=== PATIENT | male | born 1965 | race Caucasian/White ===

== ENCOUNTER → 2017-09-12 09:34 | Outpatient (CLI) | payer OTHER, SELFPAY ==
--- NOTE | 2017-09-12 | DI.RAD.S_ITS ---
PROCEDURE: XR CERVICAL SPINE 4V OR 5V INDICATIONS: NECK PAIN TECHNIQUE: 5 views of the cervical spine were acquired. COMPARISON: None. FINDINGS: Bones: No fractures or dislocations to the C7 level. Mild narrowing of the C3-C4 disc space. Mild diffuse facet disease. No suspicious bony lesions. There is normal range of motion between flexion and extension, with preserved normal bony alignment. Soft tissues: Prevertebral soft tissues are normal in thickness. Small right carotid calcification IMPRESSION: Mild C3-C4 disc degeneration and diffuse facet arthropathy. No evidence of abnormal motion with flexion and extension lateral views. Dictated by: Braxton Leal M.D. on 09/12/2017 at 12:16 Approved by: Braxton Leal M.D. on 09/12/2017 at 12:18
== END ==
PROVIDERS: Family Provider Family Medicine; PCP Family Medicine; Visit Provider Family Medicine
DX: M50.30 Other cervical disc degeneration, unspecified cervical region (principal); M47.812 Spondylosis without myelopathy or radiculopathy, cervical region
CPT/HCPCS: 72050

== ENCOUNTER → 2017-09-14 08:13 | Outpatient (CLI) | payer OTHER, SELFPAY ==
[2017-09-14 09:11] LABS: Add Manual Diff / Slide Review NO; Basophils Percent Auto 0.7 % (0-2); Eosinophils Percent Auto 2.5 % (2-4); Hematocrit 40.9 % (41-53); Hemoglobin 14.1 g/dL (13.5-17.5); Lymphocytes Percent Auto 30.7 % (25-40); Mean Corpuscular HGB Conc 34.4 % (30-36); Mean Corpuscular Hemoglobin 29.5 PG (26-34); Mean Corpuscular Volume 85.7 fL (80-100); Monocytes Percent Auto 7.9 % (3-14); Neutrophils Absolute Auto 2300 /uL (3000-5900); Neutrophils Percent Auto 58.2 % (50-75); Platelet Count 178 X10^3/uL (150-400); Red Blood Cell Count 4.77 X10^6/uL (4.5-5.9); Red Cell Distribution Width 13.6 % (11.6-14.8)
[2017-09-14 09:52] LABS: Alanine Aminotransferase 28 IU/L (21-72); Albumin 4.4 g/dL (3.5-5.0); Albumin Globulin Ratio 1.3 (1.0-2.8); Alkaline Phosphatase 82 U/L (38-126); Aspartate Aminotransferase 28 IU/L (17-59); Bilirubin Total 0.7 mg/dL (0.2-1.3); Calcium 9.2 mg/dL (8.4-10.2); Cholesterol 147 mg/dL (140-199); Estimated Glomerular Filt Rate > 60.0 mL/min (>60); Globulin 3.3 g/dL (1.7-4.1); Glucose 97 mg/dL (70-100); HDL Cholesterol 56 mg/dL (40-60); HEMOLYSIS < 15 (0-50); LDL Cholesterol Calculated 82 mg/dL (<100); Potassium 4.1 mmol/L (3.4-5.1); Sodium 137 mmol/L (137-145); Total Protein 7.7 g/dL (6.3-8.2); Triglycerides 46 mg/dL (35-150)
[2017-09-14 10:21] LABS: Prostate Specific Antigen Scrn 0.669 ng/mL (0.1-4.0); Thyroid Stimulating Hormone 1.31 uIU/mL (0.47-4.68)
== END ==
PROVIDERS: Family Provider Family Medicine; PCP Family Medicine; Visit Provider Family Medicine
DX: E78.5 Hyperlipidemia, unspecified (principal); Z00.00 Encounter for general adult medical examination without abnormal findings; R73.03 Prediabetes; Z83.3 Family history of diabetes mellitus; Z12.5 Encounter for screening for malignant neoplasm of prostate
CPT/HCPCS: 36415; 80053; 80061; 84443; 85025; G0103

== ENCOUNTER → 2018-05-13 12:16 | Outpatient (CLI) | payer OTHER, SELFPAY ==
--- NOTE | 2018-05-13 | DI.RAD.S_ITS ---
PROCEDURE: XR WRIST LT MIN 3V INDICATIONS: LEFT WRIST PAIN TECHNIQUE: 3 views of the wrist were acquired. COMPARISON: None. FINDINGS: Bones: No fractures or dislocations. No suspicious bony lesions. There is moderately severe degenerative joint space narrowing at the radiocarpal joint, where no trauma is found Scaphoid view: Not obtained of the scaphoid visualized appears free of trauma Soft tissues: No suspicious soft tissue calcifications. 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 Dictated by: Thaddeus Bernal M.D. on 05/13/2018 at 13:14 Approved by: Thaddeus Bernal M.D. on 05/13/2018 at 13:15
== END ==
PROVIDERS: PCP Family Medicine; Visit Provider Family Medicine
DX: M25.532 Pain in left wrist (principal); M19.032 Primary osteoarthritis, left wrist
CPT/HCPCS: 73110

== ENCOUNTER → 2018-09-17 06:58 | Outpatient (CLI) | payer OTHER, SELFPAY ==
[2018-09-17 08:28] LABS: Add Manual Diff / Slide Review NO; Basophils Absolute Auto 0 /uL (0-100); Basophils Percent Auto 0.7 % (0-2); Eosinophils Absolute Auto 100 /uL (0-450); Eosinophils Percent Auto 2.5 % (2-4); Hematocrit 44.4 % (41-53); Hemoglobin 14.6 g/dL (13.5-17.5); Lymphocytes Absolute Auto 1100 /uL (1100-4500); Lymphocytes Percent Auto 29.4 % (25-40); Mean Corpuscular HGB Conc 32.9 % (30-36); Mean Corpuscular Volume 88.2 fL (80-100); Monocytes Absolute Auto 300 /uL (0-900); Monocytes Percent Auto 7.5 % (3-14); Neutrophils Absolute Auto 2300 /uL (1500-7000); Neutrophils Percent Auto 59.9 % (50-75); Platelet Count 195 X10^3/uL (150-400); Red Blood Cell Count 5.03 X10^6/uL (4.5-5.9); Red Cell Distribution Width 14.2 % (11.6-14.8); White Blood Cell Count 3.9 X10^3/uL (4.5-11.0)
[2018-09-17 08:46] LABS: Alanine Aminotransferase 26 IU/L (21-72); Albumin 4.8 g/dL (3.5-5.0); Albumin Globulin Ratio 1.5 (1.0-2.8); Alkaline Phosphatase 79 U/L (38-126); Aspartate Aminotransferase 30 IU/L (17-59); BUN Creatinine Ratio 24.3 (6-22); Bilirubin Total 0.6 mg/dL (0.2-1.3); Blood Urea Nitrogen 17 mg/dL (9-20); Calcium 9.7 mg/dL (8.4-10.2); Carbon Dioxide 29 mmol/L (22-32); Chloride 101 mmol/L (98-107); Cholesterol 165 mg/dL (140-199); Estimated Glomerular Filt Rate > 60.0 mL/min (>60); Globulin 3.3 g/dL (1.7-4.1); Glucose 101 mg/dL (70-100); HDL Cholesterol 56 mg/dL (40-60); HEMOLYSIS < 15 (0-50); LDL Cholesterol Calculated 101 mg/dL (<100); Potassium 4.5 mmol/L (3.4-5.1); Sodium 139 mmol/L (137-145); Total Protein 8.1 g/dL (6.3-8.2); Triglycerides 38 mg/dL (35-150); VLDL Cholesterol Calculated 8 mg/dL (2-30)
[2018-09-17 09:16] LABS: Prostate Specific Antigen Scrn 0.781 ng/mL (0.1-4.0)
[2018-09-17 09:17] LABS: Thyroid Stimulating Hormone 2.02 uIU/mL (0.47-4.68)
== END ==
PROVIDERS: PCP Family Medicine; Visit Provider Family Medicine
DX: Z00.00 Encounter for general adult medical examination without abnormal findings (principal); E78.5 Hyperlipidemia, unspecified; Z12.5 Encounter for screening for malignant neoplasm of prostate
CPT/HCPCS: 36415; 80053; 80061; 84443; 85025; G0103

== ENCOUNTER → 2020-07-06 07:43 | Outpatient (CLI) | payer OTHER, SELFPAY ==
[2020-07-06] MEDS: COVID-19 VACC, Ad26(JANSSEN)/PF 0.5 ML IM (07:57)
== END ==
PROVIDERS: PCP Family Medicine; Visit Provider Internal Medicine
DX: Z23 Encounter for immunization (principal)
CPT/HCPCS: 0031A; 91303

== ENCOUNTER → 2021-11-22 11:18 | Outpatient (CLI) | payer OTHER, SELFPAY ==
--- NOTE | 2021-11-22 | DI.RAD.S_ITS ---
PROCEDURE: XR WRIST LT MIN 3V INDICATIONS: Pain in left wrist TECHNIQUE: 3 views of the wrist were acquired. COMPARISON: [facility], CR, XR WRIST LT MIN 3V, 05/13/2018, 12:40. FINDINGS: Bones: Progressive findings. Progression of radiocarpal joint degenerative change, with joint space obliteration. Question sclerosis of the proximal pole of the scaphoid. No acute fracture or dislocation Scaphoid view: Question sclerosis of the proximal pole of the scaphoid. Soft tissues: No suspicious soft tissue calcifications. IMPRESSION: 1. Radiocarpal joint degenerative arthritis is progressive, with joint space obliteration now present. 2. Question sclerosis of the proximal pole of the scaphoid raising question a vascular necrosis. Comment: Left wrist MRI may potentially be helpful further evaluate the scaphoid Dictated by: Nathan Quick M.D. on 11/22/2021 at 12:27 Approved by: Nathan Quick M.D. on 11/22/2021 at 12:30
== END ==
PROVIDERS: PCP Family Medicine; Referring Provider Family Medicine; Visit Provider Family Medicine
DX: M19.032 Primary osteoarthritis, left wrist (principal); M25.532 Pain in left wrist
CPT/HCPCS: 73110

== ENCOUNTER → 2021-11-28 06:34 | Outpatient (CLI) | payer OTHER, SELFPAY ==
--- NOTE | 2021-11-28 | DI.MRI.S_ITS ---
PROCEDURE: MR WRIST LT WO CON INDICATIONS: Pain in left wrist TECHNIQUE: Noncontrast coronal proton density fast spin echo and T2 fast spin echo with fat saturation; coronal 3-D gradient echo, axial T1 spin echo and T2 fast spin echo with fat saturation, sagittal T1 spin echo through the wrist. COMPARISON: [facility], CR, XR WRIST LT MIN 3V, 11/22/2021, 11:22. FINDINGS: Image quality: Excellent. Bones and cartilage: Extensive marrow edema throughout scaphoid is seen with cortical irregularity involving distal portion of scaphoid suggestive of a nondisplaced scaphoid fracture. Subcortical cystic changes also seen within scaphoid. Multiple subcortical cystic areas within lunate, capitate and hamate are seen without significant marrow edema or discrete fracture line. Osteoarthritic changes are seen throughout wrist joints with joint space narrowing and subchondral sclerosis. No other fracture or dislocation is noted. No definite evidence of osteonecrosis. Carpal ligaments: There is suggestion of low-grade intrasubstance partial-thickness tear involving dorsal component of scapholunate ligament. The lunotriquetral ligament is intact. In the absence of intra-articular contrast, the extrinsic carpal ligaments are not well identified. On sagittal images, the pisohamate ligament appears intact. Triangular fibrocartilage complex: Focal area of signal abnormality within lateral portion of triangular fibrocartilage near its radial insertion is seen concerning for focal perforation in this area . The adjacent meniscal homolog appears normal in the absence of intra-articular contrast. The extensor carpi ulnaris tendon is thickened with intrasubstance T2 hyperintense signal at the level of ulnar styloid. Tendons and soft tissues: The carpal tunnel structures appear normal, including the median nerve. The ulnar nerve appears normal within Guyon's canal. There is suggestion of tendinosis and low-grade partial-thickness tear involving abductor pollicis longus tendon and extensor pollicis brevis tendon at the level of radial styloid tip/distal scaphoid. Rest of the extensor tendon compartments demonstrate normal morphology, without pathologic tendon sheath fluid. No soft tissue ganglion cysts. IMPRESSION: 1. Finding is concerning for subacute nondisplaced/incomplete fracture through distal portion of scaphoid with extensive marrow edema throughout scaphoid. Additional subcortical cystic changes also seen in mid to distal scaphoid. No definite evidence of osteonecrosis. 2. Osteoarthritic changes throughout wrist joints with nonspecific subcortical cystic areas involving lunate, proximal to mid capitate and distal hamate. No other fracture or dislocation. 3. Suggestion of low-grade sprain/partial-thickness tear involving dorsal component of scapholunate ligament. Lunotriquetral ligament is intact. 4. Possible focal perforation involving triangular fibrocartilage near its radial insertion. 5. Tendinosis involving abductor pollicis longus tendon and extensor pollicis brevis tendon at the level of radial styloid tip/distal scaphoid. Tendinosis and low-grade intrasubstance partial-thickness tear involving extensor carpi ulnaris tendon at the level of ulnar styloid. Rest of the wrist tendons are grossly intact. Dictated by: Jens Giron M.D. on 11/28/2021 at 8:13 Approved by: Jens Giron M.D. on 11/28/2021 at 9:14
== END ==
PROVIDERS: PCP Family Medicine; Referring Provider Family Medicine; Visit Provider Family Medicine
DX: S56.812A Strain of other muscles, fascia and tendons at forearm level, left arm, initial encounter (principal); M25.532 Pain in left wrist
CPT/HCPCS: 73221

== ENCOUNTER → 2022-05-09 11:30 | Outpatient (CLI) | payer OTHER, SELFPAY ==
--- NOTE | 2022-05-09 11:37 | DI.RAD.S_ITS ---
PROCEDURE: XR RIBS BI MIN 4V W CXR1V INDICATIONS: rib pain, back pain TECHNIQUE: 2 views of the right and left ribs were acquired, along with a single view chest. COMPARISON: [facility], CR, CLAVICLE COMP (RT), 10/19/2013, 9:54. FINDINGS: Surgical changes and devices: Right clavicle ORIF. Bones and chest wall: Suspect right posterior 8th rib fracture. No dislocations. No suspicious bony lesions. Overlying soft tissues appear unremarkable. Lungs and pleura: No pleural effusions or pneumothorax. Lungs appear clear. Mediastinum: Mediastinal contours appear normal. Heart size is normal. IMPRESSION: Suspect nondisplaced right posterior 8th rib fracture. Dictated by: Jonathan Oconnell M.D. on 05/09/2022 at 12:29 Approved by: Jonathan Oconnell M.D. on 05/09/2022 at 12:33
== END ==
PROVIDERS: PCP Family Medicine; Referring Provider Family Medicine; Visit Provider Family Medicine
DX: C43.71 Malignant melanoma of right lower limb, including hip (principal); M54.9 Dorsalgia, unspecified; R07.81 Pleurodynia
CPT/HCPCS: 71111

== ENCOUNTER → 2022-05-11 09:25 | Outpatient (CLI) | payer OTHER, SELFPAY ==
--- NOTE | 2022-05-11 | DI.CT.S_ITS ---
PROCEDURE: CT PELVIS W CON INDICATIONS: RIGHT GROIN MASS TECHNIQUE: After the administration of oral contrast and intravenous contrast, 5 mm thick sections acquired from the iliac crests to the symphysis. 5 mm thick coronal and sagittal reformats were acquired. For radiation dose reduction, the following was used: automated exposure control, adjustment of mA and/or kV according to patient size. COMPARISON: None. FINDINGS: Image quality: Good. Beam hardening in the pelvis due to hip arthroplasties. Peritoneum and bowel: Contrast enhanced bowel loops demonstrate normal wall thickness and caliber. No free fluid or air. Genitourinary: Bladder wall thickness is normal. Vasectomy clips. Nodes and vessels: No iliac, pelvic, or inguinal adenopathy. Iliac vessels demonstrate normal size and enhancement. Bones: No suspicious bony lesions. Bilateral hip arthroplasties. Miscellaneous: No inguinal hernias. Anterior to the right hip arthroplasty there is a cystic lesion measuring 5.6 x 4.6 cm, (2/33). This has a heterogeneous appearance. No obvious internal enhancement. IMPRESSION: Cystic lesion anterior to the right hip arthroplasty measuring approximately 5.6 cm. Beam hardening artifact somewhat limits evaluation. 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 MRI or ultrasound may be helpful for further evaluation. Dictated by: Jonathan Oconnell M.D. on 05/11/2022 at 14:01 Approved by: Jonathan Oconnell M.D. on 05/11/2022 at 14:18
== END ==
PROVIDERS: PCP Family Medicine; Referring Provider Family Medicine; Visit Provider Family Medicine
DX: R19.09 Other intra-abdominal and pelvic swelling, mass and lump (principal)
CPT/HCPCS: 72193; Q9967

== ENCOUNTER → 2023-07-11 07:45 | Outpatient (CLI) | payer OTHER, SELFPAY ==
--- NOTE | 2023-07-11 | DI.NM.S_ITS ---
PROCEDURE: NM EXERCISE TREADMILL NON NUC COMPARISON: None INDICATIONS: Persistent atrial fibrillation FINDINGS: Rest ECG atrial fibrillation 78 bpm. Smith protocol 9:01, maximum heart rate 204 bpm (126% peak predicted), maximum blood pressure 156/90, 10.1 METS, MARIANNA -1%. Exercise ECG atrial fibrillation with RVR occasional PVCs that became more frequent in recovery. Heart rate 96 bpm at 3 minutes into recovery. The patient did not complain of exercise-induced chest discomfort. IMPRESSION: Low risk study. No evidence of exercise-induced ischemia. Maximum heart rate difficult to ascertain due to atrial fibrillation with RVR. Frequent PVCs noted throughout recovery. Normal blood pressure response. Fair exercise capacity. Dictated by: Nieves Shepard D.O. on 07/11/2023 at 16:40 Approved by: Nieves Shepard D.O. on 07/11/2023 at 16:46
== END ==
LOC: RAD 07:45
PROVIDERS: PCP Family Medicine; Referring Provider Family Medicine; Visit Provider Family Medicine
DX: I48.19 Other persistent atrial fibrillation (principal)
CPT/HCPCS: 93017

== ENCOUNTER → 2023-07-24 06:45 | Outpatient (CLI) | payer OTHER, SELFPAY ==
--- NOTE | 2023-07-24 06:46 | DI.ECHO.S_ITS ---
[facility]---------+ [facility] +---------+ : : [address] : [address] [address] : : : : [id number] : : : : Phone: [phone]---------+ Echocardiogram Report + + :Name: LEIDA JAY Study Date: 07/24/2023 Height: 69 in : :[facility] ReadingLocation: Weight: 185 lb : : Gender: Male BSA: 2.0 m2 : :: 1965 Age: 58 yrs BP: 136/93 mmHg: :Reason For Study: ATRIAL FIBRILLATION : :Ordering Physician: BRADLEY, : :LEIDA Performed By: Lissette Mayes : :Referring: LEIDA HUERTA : + + Interpretation Summary The patient was in atrial fibrillation with heart rates between 65-83 bpm during the exam. The left ventricle is normal in size and wall thickness. Left ventricular systolic function is severely reduced. The ejection fraction is estimated to be 20-25%. There is severe global hypokinesis of the left ventricle. The right ventricle is normal size. Right ventricular systolic function is at the lower limits of normal. There is mild to moderate mitral regurgitation. There is mild tricuspid regurgitation. The IVC is dilated (diameter is greater than 2.1 cm) yet it collapses greater than 50% with a sniff. This suggests a right atrial pressure of 8 mm Hg. Findings were reported to Dr. Huerta. Procedure: A two-dimensional transthoracic echocardiogram with color flow and Doppler was performed. The study quality was technically adequate. There is no prior echocardiogram noted for this patient. The patient was in atrial fibrillation with heart rates between 65-83 bpm during the exam. Left Ventricle: The left ventricle is normal in size and wall thickness. There is no thrombus. A false chord is noted (normal variant). The ejection fraction is estimated to be 20-25%. Left ventricular global longitudinal strain average is -11.0%. Left ventricular systolic function is severely reduced. There is severe global hypokinesis of the left ventricle. Diastolic function could not be accurately assessed due to atrial fibrillation. Right Ventricle: The right ventricle is normal size. Right ventricular systolic function is at the lower limits of normal. Atria: The left atrium is mildly dilated. Right atrial size is normal. There is no Doppler evidence for an interatrial shunt. Mitral Valve: The mitral valve leaflets are slightly calcified. There is mild to moderate mitral regurgitation. Aortic Valve: The aortic valve is trileaflet. The aortic valve opens well. There is no aortic valve stenosis. No aortic regurgitation is present. Tricuspid Valve: The tricuspid valve is normal. There is mild tricuspid regurgitation. Pulmonary artery pressures cannot be estimated because of the lack of a measurable TR jet velocity. Pulmonic Valve: The pulmonic valve leaflets are thin and pliable; valve motion is normal. There is trace pulmonic regurgitation. Great Vessels: The aortic root is normal size. The dimensions of the ascending aorta are normal. The IVC is dilated (diameter is greater than 2.1 cm) yet it collapses greater than 50% with a sniff. This suggests a right atrial pressure of 8 mm Hg. Pericardium/ Pleura There is no pericardial effusion. There is no pleural effusion. MMode/2D Measurements & Calculations LVIDd: 5.8 cm LVOT diam: 2.3 cm LVIDs: 4.5 cm Ao root diam: 3.9 cm FS: 22.2 % asc Aorta Diam: 3.6 cm IVSd: 0.88 cm Ao Arch Diam (Prox Trans): 3.2 cm LVPWd: 0.75 cm LV marie. diameter/BSA (cm/m^2): 2.9 LV sys. diameter/BSA (cm/m^2): 2.2 LA A2 area: 22.0 cm2 RA long axis: 5.4 cm LA A4 area: 20.7 cm2 RA area: 18.1 cm2 LA length (vol): 5.2 cm RA vol: 51.3 ml LA vol: 74.0 ml RA : 25.7 ml/m2 LA vol index: 37.0 ml/m2 IVC diam: 2.2 cm RVD1 (basal): 3.4 cm RVD2 (mid): 3.0 cm TAPSE: 1.7 cm Doppler Measurements & Calculations Ao V2 max: 91.6 cm/sec LVOT Max Taz: 52.8 cm/sec Ao V2 mean: 67.5 cm/sec LV V1 max P.1 mmHg Ao max P.4 mmHg LV V1 VTI: 10.9 cm Ao mean P.0 mmHg CHANDLER(I,D): 2.6 cm2 Ao V2 VTI: 17.7 cm CHANDLER(V,D): 2.5 cm2 sev ratio: 0.61 CHANDLER indexed to BSA (cm^2/m^2): 1.3 MV E max taz: 84.9 cm/sec TR max taz: 193.3 cm/sec MV A max taz: 0.98 cm/sec TR max P.9 mmHg MV E/A: 86.6 PA V2 max: 58.9 cm/sec Med Peak E' Taz: 6.6 cm/sec PA V2 mean: 43.3 cm/sec E/E' med: 12.9 PA mean P.81 mmHg Lat Peak E' Taz: 9.8 cm/sec PA pr(Accel): 32.8 mmHg E/E' lat: 8.6 E/e' average: 10.8 MV dec time: 0.17 sec SV(LVOT): 46.7 ml Reading Physician:05:55 PM
== END ==
PROVIDERS: PCP Family Medicine; Referring Provider Family Medicine; Visit Provider Family Medicine
DX: I08.1 Rheumatic disorders of both mitral and tricuspid valves (principal); I48.19 Other persistent atrial fibrillation
CPT/HCPCS: 93306

== ENCOUNTER → 2023-10-18 10:23 | Outpatient (CLI) | payer OTHER, SELFPAY ==
--- NOTE | 2023-10-18 19:06 | DI.NM.S_ITS ---
DATE OF SERVICE: 10/18/2023 PROCEDURE: Pharmacological perfusion study. INDICATIONS: Newly diagnosed atrial fibrillation with HFrEF, LV ejection fraction 25%, hyperlipidemia. Perfusion study is being done for CAD diagnosis and risk stratification. RADIOPHARMACEUTICAL: 24.4 mCi technetium-99m Myoview IV was injected at stress and 11.9 mCi technetium-99m Myoview IV was injected at rest. CARDIAC STRESS: The patient underwent IV Lexiscan perfusion study under the supervision of an attending staff using standard IV Lexiscan as per protocol. Baseline rhythm was atrial fibrillation. During stress, no new convincing ischemic changes. The patient has intermittent PVCs. He remained in AFib. Resting blood pressure 122/90. RAW DATA: There is increased subdiaphragmatic activity. GATED STUDY: Resting LV ejection fraction 43% and stress LV ejection fraction 50% with global hypokinesis. Resting end-diastolic volume 155 mL. TID ratio 1.19, which is within normal limits. Lung/heart ratio 0.18, which is within normal limits. MYOCARDIAL PERFUSION SCAN: Stress supine, resting supine, and stress prone images were compared to each other. There appears during stress supine and resting supine images, there was moderate-sized moderately decreased perfusion involving basal inferior wall, distal inferior wall, extending into the inferoapex as well as inferoseptum, which got completely resolved during stress prone images suggestive of diaphragmatic tissue attenuation artifact. During stress prone images, no obvious ischemia or infarction pattern seen. CONCLUSION: I will call this study a normal myocardial perfusion study with evidence of diaphragmatic tissue attenuation artifact, which got completely resolved during the stress prone images. Baseline rhythm is atrial fibrillation. Resting LVEF 43% and stress LVEF 50%. 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 As far as perfusion study is concerned, this is a low-risk myocardial perfusion study. Gagan Villagomez - ROSANNA/ivon/JUSTIN doc#: [id number]/job#: [id number] dd: 10/18/2023 16:42:00 dt: 10/18/2023 18:00:00 DICTATING MD/COPIES TO: Mercy Mcghee MD COPIES MNE: GHANSHYAM;
== END ==
LOC: NUCM 10:23
PROVIDERS: PCP Family Medicine; Referring Provider Internal Medicine; Visit Provider Internal Medicine
DX: I48.19 Other persistent atrial fibrillation (principal); I50.22 Chronic systolic (congestive) heart failure
CPT/HCPCS: 78452; 93017; A9502; J2785

== ENCOUNTER → 2024-07-24 09:48 | Outpatient (CLI) | payer OTHER, SELFPAY ==
--- NOTE | 2024-07-24 09:50 | DI.RAD.S_ITS ---
PROCEDURE: XR FOOT RT 2V INDICATIONS: Pain in right foot TECHNIQUE: 2 views of the foot were acquired. COMPARISON: None. FINDINGS: Bones: No fractures or dislocations. Valgus angulation about the 1st metatarsophalangeal joint measures approximately 18?. No suspicious bony lesions. Retrocalcaneal enthesopathy. Soft tissues: No tibiotalar joint effusion. Achilles tendon appears normal. IMPRESSION: No acute bony abnormality. Mild hallux valgus. Dictated by: Rhett Tabares M.D. on 07/24/2024 at 22:51 Approved by: Rhett Tabares M.D. on 07/25/2024 at 0:01
== END ==
PROVIDERS: PCP Family Medicine; Referring Provider Family Medicine; Visit Provider Family Medicine
DX: M79.671 Pain in right foot (principal); M20.11 Hallux valgus (acquired), right foot
CPT/HCPCS: 73620